=== PATIENT | male | born 1955 | race African-American/Black ===

== ENCOUNTER 2019-11-30 17:02 | Emergency (ER) | payer MEDICAID ==
[~2019-11-30] VITALS: Ht 182.9 cm; Wt 81.6 kg
[2019-11-30] MEDS ORDERED: LISINOPRIL5 MG ORAL (17:24)
[2019-11-30] MEDS ORDERED: GLIPIZIDE XL10 MG ORAL (17:24)
[2019-11-30] MEDS ORDERED: TRAMADOL HCL100 M2 ORAL (17:24)
[2019-11-30] MEDS ORDERED: Rocuronium Bromide 50mg/5ml Inj IV ONE (17:31)
[2019-11-30] MEDS ORDERED: Etomidate 40mg/20ml Inj IV ONE (17:31)
[2019-11-30 17:41] VITALS: BP 156/86
--- NOTE | 2019-11-30 17:42 | NUR ---
ER Nurse Note: Pt brought in by ambulance c/o generalzied weakness for 4 days. Pt stated he has not been taking his regular meds d/t his meds being in his son's car. Pt stated he fell three times since 1200. Pt denies pain, no signs of distress. Pt unsteady gait. Bilateral lower extremity edema noted. SLIV RT AC established. Pt taken to CT. Will continue to [facility].
[2019-11-30 17:54] LABS: BASOPHILS % (AUTO) 1.5 % (0.0-2.0); EOSINOPHILS % (AUTO) 10.2 % (0.0-3.0); HEMOGLOBIN 14.2 G/DL (14.2-18.0); LYMPHOCYTES % (AUTO) 15.3 % (20.0-45.0); MEAN CORPUSCULAR VOLUME 101 FL (80-99); MONOCYTES % (AUTO) 6.1 % (1.0-10.0); NEUTROPHILS % (AUTO) 66.9 % (45.0-75.0); PLATELET COUNT 259 K/UL (150-450); RED BLOOD COUNT 4.37 M/UL (4.70-6.10); RED CELL DISTRIBUTION WIDTH 11.4 % (11.6-14.8); WHITE BLOOD COUNT 5.9 K/UL (4.8-10.8)
[2019-11-30 17:55] LABS: ANION GAP 7 mmol/L (5-15); BLOOD UREA NITROGEN 11 mg/dL (7-18); CALCIUM 9.4 MG/DL (8.5-10.1); CARBON DIOXIDE 32 MMOL/L (21-32); CHLORIDE 104 MMOL/L (98-107); CREATININE 0.8 MG/DL (0.55-1.30); POTASSIUM 3.2 MMOL/L (3.5-5.1); SODIUM 143 MMOL/L (136-145)
[2019-11-30 18:00] LABS: ALANINE AMINOTRANSFERASE 41 U/L (12-78); ALBUMIN 3.3 G/DL (3.4-5.0); ALBUMIN/GLOBULIN RATIO 0.8 (1.0-2.7); ALKALINE PHOSPHATASE 86 U/L (46-116); ASPARTATE AMINO TRANSFERASE 28 U/L (15-37); BILIRUBIN,TOTAL 0.4 MG/DL (0.2-1.0)
--- NOTE | 2019-11-30 18:04 | Diagnostic Imaging Report ---
Indications: Headache, status post fall, generalized weakness for 4 days, unsteady gait, fell 3 times since noon Technique: Spiral acquisitions obtained through the brain. Angled axial and coronal 5 x 5 mm slices were reconstructed. Total dose length product 1364 mGycm. CTDI vol(s) 60 mGy. Dose reduction achieved using automated exposure control Comparison: None. Findings: There is a large right convexity subdural hematoma, predominantly over the frontal and to lesser extent the parietal lobes, which measures up to 2.4 cm in thickness. Contents are mostly isoattenuating to white matter. However, the periphery there is some hyperattenuating presumably acute blood. There is a large although slightly smaller left frontal and parietal convexity hematoma, which is mostly isoattenuating to white matter. This also demonstrates some hyperattenuation acute blood as well. This measures 2 cm in thickness. There is mass effect, manifested by attenuation of the bilateral convexity sulci. There is also some compression of the right lateral ventricle and approximately 5 mm of right to left midline shift. The suprasellar cistern is effaced. The quadrigeminal plate cistern is open but effaced. The foramen magnum is crowded but patent.. There is also a small anterior left-sided parafalcine component, measures up to 4 mm thick. No definite acute edema. Awan-white differentiation is preserved; in fact somewhat exaggerated. There is questionably some low-attenuation within the right side of the nick, although this could be artifactual. The calvarium is intact. The left optic globe is atrophic and markedly distorted. There are questionably fracture deformities of the bilateral orbital floors, probably chronic appearing medial. The mastoids are clear. Impression: Large bilateral convexity subdurals, mostly hypoattenuating but with some hyperattenuation, consistent with mixed late subacute and acute blood. This results in mass effect, as described, with 5 mm of right to left midline shift. The basilar cisterns are effaced although not completely; impending transtentorial herniation suspected Small anterior left-sided parafalcine subdural hematoma Questionable low-attenuation within the right side of the nick, suspect artifactual from beam hardening but age-indeterminate infarct also possible Atrophic and collapsed left optic globe, correlate with any history of prior trauma or insult Possible bilateral inferior orbital chronic fracture deformities. Correlate with clinical history This agrees with the preliminary interpretation provided overnight by [facility]erad[facility] service. The CT scanner at [facility] is accredited by the [employer] and the scans are performed using protocols designed to limit radiation exposure to as low as reasonably achievable to attain images of sufficient resolution adequate for diagnostic evaluation.
[2019-11-30 18:07] LABS: APPEARANCE,URINE CLEAR; BILIRUBIN, URINE 1+ (NEGATIVE); COLOR,URINE AMBER; GLUCOSE, URINE (UA) NEGATIVE (NEGATIVE); KETONES,URINE 1+ (NEGATIVE); LEUKOCYTE ESTERASE ,URINE 1+ (NEGATIVE); NITRITE,URINE NEGATIVE (NEGATIVE); PH,URINE 6 (4.5-8.0); PROTEIN,URINE 1+ (NEGATIVE); UROBILINOGEN,URINE 12 MG/DL (0.0-1.0)
[2019-11-30] MEDS ORDERED: levETIRAcetam 1,000mg/NS100ml 100 ML IVPB ONE (18:30)
[2019-11-30] MEDS ORDERED: Mannitol 20% IV 500 ML IV ONE (18:45)
[2019-11-30 18:52] VITALS: BP 174/87
[2019-11-30 19:00] VITALS: BP 174/87
--- NOTE | 2019-11-30 19:00 | NUR ---
ER Nurse Note: Pt was moved to monitor bed after CT results reviewed by . Pt alert, awake, no signs of resp and cardiac distress. Second IV established on LT AC 18 gauge; patent and infused keppra. RT AC infusing NS. Per ERMD, pt was intubated. 50mg amari and 20mg etomidate was administered at 1852. Pt intubated at 1857; 25cm at the lip and confirmed placement by chest x-ray. Vent setting of AC mode, 500ml tital volume, 5 PEEP, 40% FiO2, 14 rate. Keppra infuion completed; mannitol IVPB started. All safety measures met; will continue to monitor.
--- NOTE | 2019-11-30 19:11 | Emergency Room Report ---
History of Present Illness General Chief Complaint: Generalized Weakness Source: Patient, EMS Present Illness HPI 64-year-old male presents ED for evaluation. Brought in by EMS. Coming from [employer] office. Feeling weak and lightheaded. Started 3 days ago. States he fell 3 days ago. And then fell again today. Denies pain. States he is a diabetic. States he has not had his medication in a few days. Denies chest pain or shortness of breath. Nuys fevers or chills. No other aggravating relieving factors. Denies any other associated symptoms Allergies: Coded Allergies: CIPROFLOXACIN (Verified Allergy, Unknown, 11/30/19) Patient History Past Medical History: DM Past Surgical History: none Pertinent Family History: none Social History: Denies: smoking, alcohol use, drug use Immunizations: UTD Reviewed Nursing Documentation: PMH: Agreed; PSxH: Agreed Nursing Documentation-PMH Hx Cardiac Problems: Yes Hx Hypertension: Yes Hx Diabetes: Yes Review of Systems All Other Systems: negative except mentioned in HPI Physical Exam Vital Signs Date Time Temp Pulse Resp B/P (MAP) Pulse Ox O2 Delivery O2 Flow Rate FiO2 11/30/19 17:04 98.4 67 16 156/86 (109) 97 Room Air Sp02 EP Interpretation: reviewed, normal General Appearance: no apparent distress, alert, GCS 15, non-toxic Head: normocephalic, atraumatic Eyes: bilateral eye normal inspection, bilateral eye PERRL ENT: hearing grossly normal, normal pharynx, no angioedema, normal voice Neck: full range of motion, supple/symm/no masses Respiratory: chest non-tender, lungs clear, normal breath sounds, speaking full sentences Cardiovascular #1: regular rate, rhythm, no edema Cardiovascular #2: 2+ carotid (R), 2+ carotid (L), 2+ radial (R), 2+ radial (L) , 2+ dorsalis pedis (R), 2+ dorsalis pedis (L) Gastrointestinal: normal bowel sounds, non tender, soft, non-distended, no guarding, no rebound Rectal: deferred Genitourinary: normal inspection, no CVA tenderness Musculoskeletal: back normal, normal range of motion, gait/station normal, non- tender Neurologic: alert, motor strength/tone normal, 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 I feel this is a highly complex case requiring extensive working including EKG/Rhythm strip, Xray/CT/US, Blood/urine lab work, repeat exams while in ED, and administration of strong opiates/narcotics for pain control, admission to hospital or close patient follow up. Total time: 60 min bedside evaluation and treatment excludes procedures (EKG). Reason for critical care: subdural hematoma, herniation Possible complications: hypotension, hypertension, NE, shock, arrhythmias, metabolic acidosis, end organ damage, respiratory failure. Interventions: labs, IVFS, CT, mannitol, keppra, intubation, discussion with neurosurgery at [facility]. Course: Presenting with dizziness, weakness. Accu-Chek within normal limits. Status post fall [address] shows bilateral subdural acute on chronic. With subfalcine bleed acute. downward herniation. Discussed with neurosurgery at [facility]. Recommend intubation. Patient intubated. Given mannitol. Given given hydralazine. Patient transferred to [facility] Consultations: nursing staff, EMS, family Performed by: Dr Vitale Tolerated well condition = critical j. because of unstable vital signs this patient had a condition that could potentially threaten life or limb. I feel this is a critical patient who required my full attention while patient was considered critical. Total Critical Care Time excluding procedures was greater than 60 minutes Intubation Intubation : Consent: Emergent Intubation Method: orotracheal Tube Size (cm): 7.5 Medications: Etomidate, Rocuronium Breath Sounds after Intubation: equal Post Intubation Xray: Yes Attempts: One Patient Tolerated: Well Complications: None Medical Decision Making Diagnostic Impression: Primary Impression: Subdural hematoma ER Course Hospital Course 64-year-old male presents ED with dizziness, weakness, status post fall Differential diagnosis includes- breakthrough seizure, alcohol abuse, noncompliance with medication Clinical course Patient placed on stretcher. Initial history and physical I ordered labs, IV fluids, EKG, CT brain CT Brain dural subdural acute on chronic. Subfalcine hemorrhage. Downward herniation patient alert oriented. Protecting airway. There is concern for acute decompensation. Discussed with neurosurgery at [facility] and he agreed to preemptive intubation Patient given hydralazine. Given mannitol. Given Keppra. Intubated. Chest x- ray confirms ET tube placement. Patient will be transferred at [facility] for higher level of care. i. I feel this is a highly complex case requiring extensive working including EKG/Rhythm strip, Xray/CT/US, Blood/urine lab work, repeat exams while in ED, and administration of strong opiates/narcotics for pain control, admission to hospital or close patient follow up. Diagnosis -subdural hematoma transferred in critical condition Labs Test 11/30/19 17:27 11/30/19 18:00 White Blood Count 5.9 K/UL (4.8-10.8) Red Blood Count 4.37 M/UL (4.70-6.10) Hemoglobin 14.2 G/DL (14.2-18.0) Hematocrit 44.0 % (42.0-52.0) Mean Corpuscular Volume 101 FL (80-99) Mean Corpuscular Hemoglobin 32.6 PG (27.0-31.0) Mean Corpuscular Hemoglobin Concent 32.4 G/DL (32.0-36.0) Red Cell Distribution Width 11.4 % (11.6-14.8) Platelet Count 259 K/UL (150-450) Mean Platelet Volume 6.7 FL (6.5-10.1) Neutrophils (%) (Auto) 66.9 % (45.0-75.0) Lymphocytes (%) (Auto) 15.3 % (20.0-45.0) Monocytes (%) (Auto) 6.1 % (1.0-10.0) Eosinophils (%) (Auto) 10.2 % (0.0-3.0) Basophils (%) (Auto) 1.5 % (0.0-2.0) Prothrombin Time 10.8 SEC (9.30-11.50) Prothromb Time International Ratio 1.0 (0.9-1.1) Activated Partial Thromboplast Time 29 SEC (23-33) Sodium Level 143 MMOL/L (136-145) Potassium Level 3.2 MMOL/L (3.5-5.1) Chloride Level 104 MMOL/L (98-107) Carbon Dioxide Level 32 MMOL/L (21-32) Anion Gap 7 mmol/L (5-15) Blood Urea Nitrogen 11 mg/dL (7-18) Creatinine 0.8 MG/DL (0.55-1.30) Estimat Glomerular Filtration Rate > 60 mL/min (>60) Glucose Level 123 MG/DL (74-106) Calcium Level 9.4 MG/DL (8.5-10.1) Total Bilirubin 0.4 MG/DL (0.2-1.0) Aspartate Amino Transf (AST/SGOT) 28 U/L (15-37) Alanine Aminotransferase (ALT/SGPT) 41 U/L (12-78) Alkaline Phosphatase 86 U/L (46-116) Total Protein 7.7 G/DL (6.4-8.2) Albumin 3.3 G/DL (3.4-5.0) Globulin 4.4 g/dL Albumin/Globulin Ratio 0.8 (1.0-2.7) Acetone Level Negative (NEGATIVE) Urine Color Amy Urine Appearance Clear Urine pH 6 (4.5-8.0) Urine Specific Hewitt 1.020 (1.005-1.035) Urine Protein 1+ (NEGATIVE) Urine Glucose (UA) Negative (NEGATIVE) Urine Ketones 1+ (NEGATIVE) Urine Blood Negative (NEGATIVE) Urine Nitrite Negative (NEGATIVE) Urine Bilirubin 1+ (NEGATIVE) Urine Ictotest Negative (NEGATIVE) Urine Urobilinogen 12 MG/DL (0.0-1.0) Urine Leukocyte Esterase 1+ (NEGATIVE) Urine RBC 0-2 /HPF (0 - 0) Urine WBC 2-4 /HPF (0 - 0) Urine Squamous Epithelial Cells Few /LPF (NONE/OCC) Urine Bacteria None /HPF (NONE) Urine Mucus Moderate /LPF (NONE/OCC) Urine Opiates Screen Negative (NEGATIVE) Urine Barbiturates Screen Negative (NEGATIVE) Phencyclidine (PCP) Screen Positive (NEGATIVE) Urine Amphetamines Screen Negative (NEGATIVE) Urine Benzodiazepines Screen Negative (NEGATIVE) Urine Cocaine Screen Positive (NEGATIVE) Urine Marijuana (THC) Screen Negative (NEGATIVE) CT/MRI/US Diagnostic Results CT/MRI/US Diagnostic Results : Imaging Test Ordered: CT Head Impression Impression: -Recommend emergent neurosurgical consultation. -Large bilateral hemispheric frontoparietal subdural hematomas, low-attenuation with smaller foci of higher attenuation likely representing either chronic or acute on chronic hemorrhage; right measures up to 2.4 cm in thickness and left up to 1.9cm thickness. - Small acute parafalcine subdural hematoma 0.4 cm in thickness. -Right to left 0.8 cm subfalcine herniation. -Effaced but patent 3rd ventricle. - Effacement of suprasellar cistern, representing a lateral herniation and downward cerebral herniation. -Effaced but minimally patent quadrigeminal plate cistern representing downward transtentorial herniation. -Patent fourth ventricle. -Foramen magnum crowding representing impending downward posterior fossa herniation. - Possible tiny right subarachnoid hemorrhage axial image 16. -Ill-defined hypodense region right nick could represent artifact from the skull base, somewhat difficult to assess on this study. -Absent right lobe and atelectatic left maxillary sinus. Last Vital Signs Date Time Temp Pulse Resp B/P (MAP) Pulse Ox O2 Delivery O2 Flow Rate FiO2 11/30/19 18:42 151/114 11/30/19 17:41 98.4 78 16 97 Room Air Status: improved Disposition: XFER SHT-TRM HOSP Condition: Critical Referrals: NON PHYSICIAN (PCP) Jin Vitale MD Nov 30, 2019 19:11
--- NOTE | 2019-11-30 19:20 | NUR ---
ED Nurse Note: Confirmed with Dr. Jack and ordered to administer 100g Mannitol over 30 min. Increased the infusion rate and infusing via filter @ left AC. No redenss, swellin or pain noted.
[2019-11-30 19:30] VITALS: BP 212/104
[2019-11-30] MEDS ORDERED: Propofol 200mg/20ml IV ONE ×2 (19:30→20:00)
--- NOTE | 2019-11-30 19:30 | NUR ---
ER Nurse Note: Informed ERMD that pt is becoming aggitated and fighting the ETT. Propofol 60mg ordered and administered by ERMD; effective. Propofol 40 mg ordered shortly after d/t aggitation. SBP>190mmHg; ERMD aware; hydralazine ordered. Will continue to montior vital signs. Pt calm, cooperative, sedated. All safety measures met; will continue to montior.
[2019-11-30 19:55] VITALS: BP 174/96
[2019-11-30] MEDS ORDERED: LORazepam Inj 2mg/ml 1ml ONE (20:03)
[2019-11-30 20:10] VITALS: BP 154/86
--- NOTE | 2019-11-30 20:10 | NUR ---
ER Nurse Note: Report given to LEONCIO Duque. Pt began to become agitated ; ERMD aware. Ativan ordered and given. Report given to ALEX Joyce at [facility]. All belongings taken with pt; VSS, pupils reactive. All orders completed.
[2019-11-30] MEDS ORDERED: LORazepam Inj 2mg/ml 1ml IV ONE (20:15)
--- NOTE | 2019-12-01 10:47 | Diagnostic Imaging Report ---
. Indication: Shortness of breath Technique: One view of the chest Comparison: none Findings: Lungs and pleural spaces are clear. The heart size is normal. There is mild thoracic scoliotic deformity Impression: No acute process
--- NOTE | 2019-12-01 11:52 | Diagnostic Imaging Report ---
. Indication: Post intubation Technique: One view of the chest Comparison: 12/09/2019 Findings: Endotracheal intubation, endotracheal tube tip projecting approximately 7 cm above the beny. The lungs and pleural spaces are clear. The heart size is normal. Impression: Satisfactory endotracheal intubation. No acute pulmonary process
--- NOTE | 2019-12-01 11:53 | Diagnostic Imaging Report ---
Indication: Status post endotracheal tube placement Technique: One view of the chest Comparison: A minutes earlier Findings: Stable satisfactory position of endotracheal tube, tip projecting approximately 7 cm above the beny. There may be some developing right suprahilar infiltrate. Impression: Satisfactory endotracheal intubation Possible developing right suprahilar infiltrate
--- NOTE | 2019-12-01 11:54 | Diagnostic Imaging Report ---
Indication: Post tube placement Technique: One view of the chest Comparison: 8 minutes earlier Findings: Interim slight advancement of endotracheal tube, tip now projecting approximately 5 cm above the beny. Other findings are unchanged. Impression: Improved position of endotracheal tube
== END 2019-11-30 20:10 | disposition short-term general hospital (02) ==
LOC: EDBD 17:02 → EMR 17:30
DX: S06.5X9A Traumatic subdural hemorrhage with loss of consciousness of unspecified duration, initial encounter (principal); E11.9 Type 2 diabetes mellitus without complications; I10 Essential (primary) hypertension; W01.0XXA Fall on same level from slipping, tripping and stumbling without subsequent striking against object, initial encounter; Y93.9 Activity, unspecified; Y92.9 Unspecified place or not applicable; Z88.1 Allergy status to other antibiotic agents
CPT/HCPCS: 31500; 36415; 70450; 71045; 80053; 80307; 81003; 82009; 82962; 85025; 85610; 85730; 86850; 86900; 86901; 93005; 96361; 96365; 96375; 96376; J0360; J1953; J2150; J2704; J7030; Z7502; 99285